=== PATIENT | female | born 1950 | race Caucasian/White ===

== ENCOUNTER → 2022-01-01 | Outpatient (CLI) | payer MEDICARE, OTHER ==
--- NOTE | 2022-01-01 16:25 | DIREP ---
PROCEDURE:BONE DENSITY PERIPHERAL INDICATIONS:M85.80 DISORDERS OF BONE DENSITY AND STRUCTURE COMPARISON:None. FINDINGS: Proximal right femur bone mineral density (BMD) (g/cm2):1.162 Right Femur T-score (standard deviation relative to young adult mean BMD):1.2 Right Femur Z-score (standard deviation relative to age-matched control group): 2.3 Proximal left femur bone mineral density (BMD) (g/cm2):1.160 Left Femur T-score (standard deviation relative to young adult mean BMD):1.2 Left Femur Z-score (standard deviation relative to age-matched control group): 2.3 Lumbar bone mineral density (BMD) (g/cm2):1.024 Lumbar T-score (standard deviation relative to young adult mean BMD):-1.4 Lumbar Z-score (standard deviation relative to age-matched control group):-0.4 Change since prior exam (%): Femur:Not applicable. Spine:Not applicable. Change since oldest prior exam (%): Femur:Not applicable. Spine:Not applicable. CONCLUSION: 1. Osteopenia of the lumbar spine by WHO criteria. Fracture risk is moderate, treatment advised if risk factors are present. If treatment is initiated, a followup DEXA examination is recommended in 1-2 years to monitor response to therapy. 2. Normal bone mineral density of the bilateral proximal femora by WHO criteria.Ten year probability of fracture (FRAX results): Major osteoporotic fracture-8%; hip fracture-0.8%. *Note: The Z-score is provided for informational purposes. The T-score is preferable for clinical decisions. When comparing exams, a change of >4% is considered statistically significant. SUGGESTED RECOMMENDATIONS: Normal & Osteopenia:Consideration should be given to use of calcium supplementation, daily multiple vitamins and adequate exercise, as preventive measures against osteoporosis, if clinically indicated. Osteoporosis & Severe Osteoporosis:In addition to the above, consideration should be given to medical therapy against osteoporosis, if clinically indicated. Dictated by: Elian Dominguez M.D. on 01/01/2022 at 03:22 PM Read in [place]
== END | disposition home or self-care (01) ==
LOC: BD 10:24
PROVIDERS: ATTEND Family Medicine
DX: M85.88 Other specified disorders of bone density and structure, other site (principal); M85.80 Other specified disorders of bone density and structure, unspecified site
CPT/HCPCS: 77080

== ENCOUNTER → 2022-01-09 | Outpatient (CLI) | payer MEDICARE, OTHER ==
--- NOTE | 2022-01-09 13:30 | DIREP ---
PROCEDURE:CT ABDOMEN/PELVIS W/ CONTRAST COMPARISON:None. INDICATIONS:DIARRHEA ACUTE, ABD PAIN, NAUSEA TECHNIQUE:Axial images were created through the abdomen and pelvis with non-ionic intravenous contrast material. Oral contrast was administered. Sagittal and coronal reconstructions were performed from source images. FINDINGS: LUNG BASES:Normal. No visible pulmonary or pleural disease. LIVER:Normal. No significant liver lesions are identified. BILIARY:Normal. No visible dilatation or calcification. PANCREAS:Normal. No lesion, fluid collection, ductal dilatation, or atrophy. SPLEEN:Normal. No enlargement or focal lesion. ADRENALS:Normal. No mass or enlargement. URINARY TRACT:Normal. No focal lesions or hydronephrosis. AORTA/VASCULAR:Normal. No aneurysm. RETROPERITONEUM:Normal. No mass or adenopathy. BOWEL/MESENTERY:The appendix is visualized and appears normal. There is no intestinal obstruction, free fluid, free air or mesenteric inflammatory changes. Scattered sigmoid diverticuli ABDOMINAL WALL:Normal. No mass or hernia. PELVIC ORGANS:The uterus is surgically absent. No visible mass. BONES:Anterolisthesis of L5 on S1 with bilateral pars defect. Loss of disc height, and endplate sclerosis OTHER:Negative. CONCLUSION:No acute findings. Surgical changes. Scattered sigmoid diverticuli without CT evidence of acute diverticulitis Dictated by: Terry Donohue MD on 01/09/2022 at 01:25 PM
== END | disposition home or self-care (01) ==
LOC: RAD 09:50
PROVIDERS: ATTEND Family Medicine
DX: K57.30 Diverticulosis of large intestine without perforation or abscess without bleeding (principal); R10.9 Unspecified abdominal pain; R11.0 Nausea
CPT/HCPCS: 36415; 74177; 82565; Q9965